=== PATIENT | female | born 1990 | race Caucasian/White ===

== ENCOUNTER 2019-09-06 10:58 | Inpatient (IN) ==
[2019-09-07] MEDS ORDERED: PENICILLIN G POTASSIUM 6 MU in DEXTROSE 5% 250 ML IV STA (08:56)
[2019-09-07] MEDS ORDERED: OXYTOCIN 30 UNITS/500 ML BAG IV PRN (08:56)
--- NOTE | 2019-09-07 09:14 | Obstetrical Progress Note ---
Date of Service September 07, 2019 Subjective Admit Note 29 F P0000 at 40.6 weeks admitted for induction of labor for post-dates. Her course has been uncomplicated. GBS is positive. Cervix is 1/60/- 3/vertex/posterior/intact. EFW is 8 lbs. Will ripen cervix with Cervidil. Discussed with patient and . Results & Data Vital Signs (Past 12 Hours) Vital Signs Temp Pulse Resp BP 09/07/19 07:53 109 H 129/67 09/07/19 07:48 37.1 C 98 H 18 146/63 H
[2019-09-07] MEDS ORDERED: DINOPROSTONE 10 MG INSERT PV ONE (09:19)
[2019-09-07 09:31] LABS: Hematocrit (blood only) 37.2 % (37-47); Hemoglobin 12.7 g/dL (12.0-16.0); Mean Corpuscular Hemoglobin 31.4 pg (25-34); Mean Corpuscular Volume 91.9 fL (80-100); Mean Platelet Volume 10.7 fL (7.4-10.4); Platelet Count 209 K/uL (130-400); RDW Coefficient of Variation 13.7 % (11.5-14.5); RDW Standard Deviation 45.3 fL (36.4-46.3); Red Blood Count 4.05 M/uL (4.2-5.4); White Blood Count 12.42 K/uL (4.8-10.8)
[2019-09-07 09:35] LABS: Mean Corpuscular Hgb Conc 34.1 g/dL (32-36)
--- NOTE | 2019-09-07 09:44 | Obstetrical Progress Note ---
Date of Service September 07, 2019 Subjective Cervidil 10 mg placed vaginally. FHT Cat 1. Results & Data Vital Signs (Past 12 Hours) Vital Signs Temp Pulse Resp BP 09/07/19 07:53 109 H 129/67 09/07/19 07:48 37.1 C 98 H 18 146/63 H
[2019-09-07] MEDS: LACTATED RINGER'S 1,000 ML IV PRN (13:56)
--- NOTE | 2019-09-07 15:10 | Obstetrical Progress Note ---
Date of Service September 07, 2019 Physical Exam Genitourinary: Manual OB Exam: + cervical dilation 2 cm, + cervical effacement 80% and + station high OB Exam Monitor Tracing: + external FHT monitor used, + external uterine monitor used and + category I Results & Data Vital Signs (Past 12 Hours) Vital Signs Temp Pulse Resp BP Pulse Ox 09/07/19 15:06 71 142/79 H 09/07/19 13:16 75 98 09/07/19 13:11 73 98 09/07/19 13:06 84 98 09/07/19 13:01 77 98 09/07/19 12:56 75 98 09/07/19 12:51 83 98 09/07/19 12:47 37.4 C 70 18 135/73 09/07/19 09:43 68 131/61 09/07/19 07:53 109 H 129/67 09/07/19 07:48 37.1 C 98 H 18 146/63 H
[2019-09-07] MEDS: PENICILLIN G POTASSIUM 3 MU in DEXTROSE 5% 100 ML IV PRN ×2 (17:56→22:27)
[2019-09-08] MEDS ORDERED: miSOPROStoL 50 MCG TAB PO SCH
[2019-09-08] MEDS: PENICILLIN G POTASSIUM 3 MU in DEXTROSE 5% 100 ML IV PRN ×6 (03:49→21:56)
--- NOTE | 2019-09-08 06:14 | Obstetrical Progress Note ---
Date of Service September 08, 2019 Physical Exam Genitourinary: OB Exam Abdomen: + estimated weight (8 lbs.) and + irregular contractions Manual OB Exam: + cervical dilation 3 cm and 4 cm, + cervical effacement 90% and + station -2 OB Exam Monitor Tracing: + external FHT monitor used, + external uterine monitor used, + category I and + normal FHT variability Will start Oxytocin to augment contractions Results & Data Vital Signs (Past 12 Hours) Vital Signs Temp Pulse Resp BP 09/08/19 03:45 36.8 C 70 18 121/66 09/07/19 23:32 37.2 C 61 18 132/68 09/07/19 23:29 37.2 C 18 09/07/19 19:21 89 136/65
[2019-09-08] MEDS ORDERED: OXYTOCIN 30 UNITS/500 ML BAG IV PRN (06:32)
[2019-09-08] MEDS: LACTATED RINGER'S 1,000 ML IV PRN ×2 (15:35→23:00)
[2019-09-09] MEDS ORDERED: CITRIC ACID/SODIUM CITRATE 15 ML UDC ONE (02:22)
[2019-09-09] MEDS ORDERED: MoRPHine SULFATE PF 1 MG/ML 10 ML AMP/VIAL ONE (02:37)
[2019-09-09] MEDS ORDERED: fentaNYL citrate 100 MCG/2 ML VIAL ONE (02:37)
[2019-09-09] MEDS ORDERED: LACTATED RINGER'S 1,000 ML IV SCH ×3 (02:45→08:45)
[2019-09-09] MEDS ORDERED: OXYTOCIN 10 UNITS/ML VIAL ONE ×4 (02:56→04:21)
[2019-09-09] MEDS ORDERED: cefOXitin 2,000 MG in DEXTROSE 5% 50 ML IV ONE (03:00)
--- NOTE | 2019-09-09 03:11 | History and Physical Report ---
DATE OF ADMISSION: 09/07/2019 CHIEF COMPLAINT: Arrest of labor. HISTORY OF PRESENT ILLNESS: The patient is a 29-year-old 1, para 0. Her due date was 09/01/2019. She was brought in for induction for being over her due date. Cervidil tape for 12 hours followed by IV Pitocin. She basically got to about 9 cm. The Pitocin had to be turned back and then turned off, then restarted and she was 9 cm for a good 4-5 hours, was unable to move the head. We could not run the Pitocin because the baby got into distress when we did. She was diagnosed with cephalopelvic disproportion and with a nonreassuring heart rate tracing every time she was on the Pitocin. PAST MEDICAL HISTORY: No known drug allergies. PAST SURGICAL HISTORY: [place] teeth removed. MEDICAL HISTORY: No history of rheumatic fever, heart disease, heart murmur, diabetes, tuberculosis. SOCIAL HISTORY: No smoking. No excessive alcohol intake. Works for [employer]. FAMILY HISTORY: Mom is 55. Dad 58, both in good health. One brother in good health. REVIEW OF SYSTEMS: She does have some problems with supraventricular tachycardia. PHYSICAL EXAMINATION: GENERAL: Well-developed, well-nourished 29-year-old female, alert, oriented x3 in intermittent periods of distress due to contractions. HEART: Had regular rhythm. S1, S2 are normal. LUNGS: Clear to auscultation and percussion. ABDOMEN: Term size fetus, estimated weight 7 pounds. PELVIC: Cervix, anterior rim, vertex presentation, -2 station. MUSCULOSKELETAL: Revealed no calf tenderness. IMPRESSIONS OF THIS CASE: Status post wisdom teeth removal. Arrest of labor secondary to cephalopelvic disproportion.
[2019-09-09 03:15] LABS: Basophils # (auto) 0.01 K/uL (0-0.2); Basophils % (auto) 0.1 %; Eosinophils # (auto) 0.01 K/uL (0-0.5); Eosinophils % (auto) 0.1 %; Hematocrit (blood only) 33.9 % (37-47); Hemoglobin 11.5 g/dL (12.0-16.0); Immature Granulocytes # (auto) 0.18 K/uL (0.00-0.02); Immature Granulocytes % (auto) 1.2 %; Lymphocytes # (auto) 0.91 K/uL (1.2-3.4); Lymphocytes % (auto) 5.9 %; Mean Corpuscular Hemoglobin 31.5 pg (25-34); Mean Corpuscular Volume 92.9 fL (80-100); Mean Platelet Volume 10.1 fL (7.4-10.4); Monocytes # (auto) 0.85 K/uL (0.11-0.59); Monocytes % (auto) 5.5 %; Neutrophils # (auto) 13.49 K/uL (1.4-6.5); Neutrophils % (auto) 87.2 %; Platelet Count 193 K/uL (130-400); RDW Coefficient of Variation 13.7 % (11.5-14.5); RDW Standard Deviation 46.8 fL (36.4-46.3); Red Blood Count 3.65 M/uL (4.2-5.4); White Blood Count 15.45 K/uL (4.8-10.8)
--- NOTE | 2019-09-09 03:17 | Anesthesiology Consultation ---
Date of Service September 09, 2019 Assessment & Plan ASA [id number] Proposed Anesthesia Anesthesia Type: Spinal Risk / Benefits Reviewed With: PT / POA / Parent / Guardian, Accepts Plan and Informed Consent Obtained History Surgery Operation Date: 09/09/19 02:50 Proposed Procedures p Section in LD - Serafin Constantino MD Height/Weight Height: 5 ft 1.5 in Weight: 80.9 kg Allergies Allergy/AdvReac Type Severity Reaction Status Date / Time No Known Allergies Allergy Verified 09/17/16 08:56 Medications Home Medications Medication Instructions Recorded Confirmed Last Taken Vitamin with Minerals 1 tab PO DAILY 09/07/19 09/07/19 1 Day Ago ~09/06/19 cranberry 500 mg PO DAILY 09/07/19 09/07/19 09/07/19 folic acid 1 mcg/kg PO DAILY 09/07/19 09/07/19 1 Day Ago ~09/06/19 potassium chloride 1 meq PO DAILY 09/07/19 09/07/19 1 Day Ago ~09/06/19 sertraline 09/07/19 Unknown Active Medications Generic Name Dose Route Start Last Admin Trade Name Freq PRN Reason Stop Dose Admin Lactated Ringer's 1,000 mls @ 125 mls/hr 09/07/19 08:56 09/08/19 23:00 Lr IV 09/09/19 08:55 125 mls/hr .Q8H PRN Administration L&D Protocol Protocol Cefoxitin Sodium 2,000 mg/ 60 mls @ 100 mls/hr 09/09/19 03:00 09/09/19 02:55 Dextrose IV 09/09/19 03:35 100 mls/hr ONE ONE Administration Past Medical History Medical History Group beta Strep positive Heart palpitations Followed by perioperative assistant Exercise / Class Metabolic Activity II 4-5 Yardwork/Stairs/Walk up hill Past Anesthesia History No Hx of Anesthesia Complications and No Family Hx of Anesthesia Complications History of PONV No Hx of PONV and No Hx of Motion Sickness Social History Smoking Status: Never smoker Hx Alcohol Use: No Hx Substance Use: No substance use type: does not use Review of Systems denies fever/cough/ colds/ chest pain/ SOB/ DARIAN Constitutional: no fever and no chills Respiratory: no cough and no dyspnea denies DARIAN Cardiovascular: no chest pain and no dyspnea on exertion Physical Exam Vital Signs Last Vital Signs Temp 37.3 C 09/09/19 00:55 Pulse 103 H 09/09/19 02:53 Resp 18 09/09/19 00:55 BP 139/70 09/09/19 02:37 Pulse Ox 96 09/09/19 02:53 ENMT Mouth: no TMJ abnormality and no dentition abnormality Thyromental Distance: > or= 3.5 Finger Breadths Mallampati Class: II Neck neck extension not limited Respiratory normal respiratory effort; no respiratory distress Auscultation: lungs clear to auscultation bilaterally Cardiovascular Rate/Rhythm: regular rate and regular rhythm Neurologic moves all extremities Psychiatric Orientation: alert and oriented x 3 Testing Laboratory Results 09/09/19 02:57
[2019-09-09] MEDS ORDERED: DiphenhydrAMINE HCL 50 MG/ML VIAL IV PRN ×2 (03:31→21:31)
[2019-09-09] MEDS ORDERED: NALBUPHINE HCL INJ 10 MG/ML AMP IV PRN (03:31)
[2019-09-09] MEDS ORDERED: ePHEDrine sulfate 50 MG/ML AMP IV PRN (03:31)
[2019-09-09] MEDS ORDERED: NALOXONE HCL 1 MG in SODIUM CHLORIDE 0.9% 1000ML 1,000 ML IV PRN (03:31)
[2019-09-09] MEDS ORDERED: NALOXONE HCL 0.4 MG/1 ML VIAL/CARP IV PRN (03:31)
[2019-09-09] MEDS ORDERED: LACTATED RINGER'S 500 ML IV PRN (03:31)
[2019-09-09] MEDS ORDERED: ONDANSETRON INJ 2 MG/ML 2 ML VIAL IV PRN ×2 (03:31→21:31)
[2019-09-09] MEDS ORDERED: NALOXONE HCL 0.08 MG in SYRINGE 1.8 ML IV PRN (03:31)
[2019-09-09] MEDS ORDERED: HYDROmorphone INJ 0.5 MG/0.5 ML SYR IV PRN (03:31)
[2019-09-09] MEDS ORDERED: MoRPHine SULFATE PF 1 MG/ML 10 ML AMP/VIAL INT SPINAL ONE (03:31)
[2019-09-09 03:39] LABS: Mean Corpuscular Hgb Conc 33.9 g/dL (32-36)
[2019-09-09] MEDS ORDERED: KETOROLAC 30 MG/ML VIAL ONE (03:44)
[2019-09-09] MEDS ORDERED: DC INTRASPINAL MORPHINE SCH (03:45)
[2019-09-09] MEDS ORDERED: SODIUM CHLORIDE 0.9% 1000ML 1,000 ML IV SCH (03:45)
[2019-09-09] MEDS ORDERED: NO NARCOTICS OR SEDATIVES SCH (03:45)
[2019-09-09] MEDS ORDERED: OXYTOCIN 10 UNITS/ML VIAL IM ONE (03:57)
--- NOTE | 2019-09-09 04:33 | Post Operative Brief Note ---
Immediate Post Op Note v1 Date of Surgery September 09, 2019 Pre & Post Diagnosis Operation Date: 09/09/19 02:50 Pre-Op Diagnosis: 1.Cephalopelvic Disproportion Post-Op Diagnosis: Same as preop I identified the patient and participated in the time-out.: Yes Procedure Operation Date: 09/09/19 02:50 Actual Procedures p Section in LD(Not Applicable) - Serafin Constantino MD Surgeon Serafin Constantino MD Photogravure Press Operator none Estimated Blood Loss 500 Findings Consistent with Post-Op Diagnosis Specimens 2000 ml Drains Nicole Catheter (Nicole inserted in OR, clear yellow urine, to be monitored by anesthesia during proceedure) Anesthesia Type Spinal Disposition Accompanied Patient To Recovery: No Disposition: Recovery Room
--- NOTE | 2019-09-09 05:33 | Operative Report ---
DATE OF OPERATION: 09/09/2019 PROCEDURE: Primary low segment section. INDICATIONS FOR SURGERY: Arrest of labor secondary to cephalopelvic disproportion. PREOPERATIVE DIAGNOSIS: Cephalopelvic disproportion post-term. POSTOPERATIVE DIAGNOSIS: Delivered a live male infant. SURGEON: Salbador Constantino MD BELLMAN DRIVER: equal opportunity assistant. ESTIMATED BLOOD LOSS: 500 mL. ANESTHESIA: Spinal. OPERATIVE FINDINGS AND PROCEDURE: The patient was brought to the OR table, correctly identified by armband and conversation. Spinal anesthesia was administered. Nicole catheter was inserted aseptically in the bladder, connected to gravity drainage. Compression stockings were applied. Lower abdomen was painted with an alcohol based sterilizing solution, draped in the usual sterile fashion. Pfannenstiel incision was made, carried down to the anterior fascia by sharp dissection. Hemostasis was secured by electrocauterization. Fascia was incised transversely, from underlying muscle by blunt and sharp dissection. Recti muscles were in the midline exposing the peritoneum which was carefully raised and entered. Incision was made above the vesicouterine fold. Bladder was undermined bluntly and pushed out of the operative field. Lower uterine segment was scored with a knife and then entered with scissors. This incision was extended laterally. Vectis retractor was applied to the head, and with fundal pressure, live was delivered. was suctioned through the mouth and nose. It was attended to by the stacker driver who was scrubbed and present at the time of delivery. Cord was clamped and cut. Cord blood was taken. Placenta was removed manually. Uterus, tubes, and ovaries were brought out through the incision. Myometrial defect was grasped with ring forceps on the edges and then the middle. Then, a continuous interlocking suture of heavy chromic was used to approximate the myometrium. On the left side, the tear had gone through the vessels and several horizontal sutures were placed above and below the myometrial defect to control the bleeding. Following this, a second layer was approximated with a heavy duty Vicryl. This was continuous and interlocking layer. Then, 3 [id number] sutures of heavy duty Vicryl was used to finish the approximation. Inspection of the approximation revealed it to be hemostatic. Peritoneal edges were identified and the bladder flap was sewn together with a running 3-0 chromic. Following this, pelvis was cleansed of all blood clots and debris. The lower uterine segment was inspected and found to be hemostatic. Then, uterus, tubes, and ovaries were reinserted into the pelvic cavity. Careful anatomical approximation of anterior abdominal wall was performed. Peritoneum was closed with a mattress suture of chromic catgut. Recti muscles approximated with interrupted [id number] suture of chromic catgut. The fascia was closed with continuous interlocking suture of Vicryl on each side, tied in the midline. SubQ was approximated with a running plain and skin edge approximated with staple clips. I attest to the content of the Intraoperative Record and any orders documented therein. Any exception s are noted below.
[2019-09-09] MEDS ORDERED: CITRIC ACID/SODIUM CITRATE 15 ML UDC PO SCH (06:00)
[2019-09-09] MEDS: OXYTOCIN 20 UNITS in LACTATED RINGER'S 1,000 ML IV SCH ×2 (06:19→14:40)
--- NOTE | 2019-09-09 08:27 | Anesthesiology Progress Note ---
Date of Service September 09, 2019 Anesthesia Post Procedure Vital Signs Vital Signs: Temp Pulse Resp BP Pulse Ox 09/09/19 08:21 78 120/63 99 09/09/19 08:16 79 99 09/09/19 08:11 76 117/67 100 09/09/19 08:10 20 09/09/19 08:06 81 100 09/09/19 08:01 86 116/68 100 09/09/19 07:56 83 98 09/09/19 07:51 86 116/55 L 98 09/09/19 07:46 82 98 09/09/19 07:41 82 117/65 99 09/09/19 07:40 20 09/09/19 07:36 94 H 98 09/09/19 07:31 76 118/64 98 09/09/19 07:26 82 98 09/09/19 07:21 80 121/64 99 09/09/19 07:16 82 98 09/09/19 07:11 79 123/67 98 09/09/19 07:10 37.0 C 20 09/09/19 07:06 87 98 09/09/19 07:01 96 H 119/77 97 09/09/19 06:56 86 98 09/09/19 06:52 93 H 127/61 09/09/19 06:51 91 H 98 09/09/19 06:46 92 H 98 09/09/19 06:43 36.6 C 18 09/09/19 06:42 94 H 155/60 H 09/09/19 06:41 99 H 98 09/09/19 06:36 86 98 09/09/19 06:35 36.7 C 18 09/09/19 06:32 104 H 112/56 L 09/09/19 06:31 98 H 98 09/09/19 06:26 122 H 99 09/09/19 06:25 18 09/09/19 06:21 75 119/64 98 09/09/19 06:16 84 98 09/09/19 06:15 18 09/09/19 06:11 85 116/58 L 98 09/09/19 06:06 79 98 09/09/19 06:05 18 09/09/19 06:01 75 120/61 99 09/09/19 05:56 70 99 09/09/19 05:55 36.7 C 18 09/09/19 05:51 71 117/59 L 98 09/09/19 05:46 81 98 09/09/19 05:45 18 09/09/19 05:41 75 119/56 L 100 09/09/19 05:36 89 99 09/09/19 05:35 18 09/09/19 05:31 76 129/60 99 09/09/19 05:26 74 127/63 99 09/09/19 05:25 18 09/09/19 05:21 84 100 09/09/19 05:16 75 100 09/09/19 05:13 84 134/54 L 09/09/19 05:11 73 99 09/09/19 05:06 70 100 09/09/19 05:05 18 09/09/19 05:03 70 102/52 L 09/09/19 05:01 81 100 09/09/19 04:56 75 100 09/09/19 04:55 36.7 C 18 09/09/19 04:51 76 119/55 L 09/09/19 04:42 71 127/68 09/09/19 02:53 103 H 96 09/09/19 02:48 113 H 96 09/09/19 02:43 105 H 99 09/09/19 02:38 85 98 09/09/19 02:37 86 139/70 09/09/19 02:33 100 H 99 09/09/19 02:28 88 99 09/09/19 02:23 92 H 98 09/09/19 02:18 96 H 98 09/09/19 02:13 97 H 98 09/09/19 02:08 109 H 96 09/09/19 01:48 96 H 135/66 09/09/19 01:30 86 119/58 L 09/09/19 00:55 37.3 C 18 09/09/19 00:53 80 136/73 09/09/19 00:10 18 09/08/19 23:36 74 136/69 09/08/19 23:30 18 09/08/19 23:00 36.6 C 18 09/08/19 21:59 71 159/74 H 09/08/19 21:30 18 09/08/19 21:06 77 146/68 H 09/08/19 21:00 37.3 C 18 09/08/19 20:00 18 09/08/19 19:15 36.9 C 18 09/08/19 19:11 86 135/65 09/08/19 18:07 63 134/66 09/08/19 16:59 36.9 C 61 20 131/64 09/08/19 16:10 83 18 146/79 H 09/08/19 16:09 78 154/79 H 09/08/19 16:07 69 168/92 H 09/08/19 16:06 87 168/86 H 09/08/19 15:10 37.2 C 20 09/08/19 15:07 87 144/68 H 09/08/19 14:53 75 132/63 09/08/19 14:13 76 132/65 09/08/19 13:44 72 98 09/08/19 13:39 84 97 09/08/19 13:34 73 98 09/08/19 13:29 69 98 09/08/19 13:24 77 98 09/08/19 13:20 37.1 C 18 09/08/19 13:19 81 137/68 98 09/08/19 13:14 75 98 09/08/19 13:09 72 98 09/08/19 13:04 78 98 09/08/19 12:23 86 133/70 09/08/19 11:21 37.1 C 20 09/08/19 11:19 71 134/65 09/08/19 09:57 72 138/64 09/08/19 09:01 76 18 137/65 Pain Intensity Bilateral Back: Pain Intensity: 10 Bilateral Lower Abdomen: Pain Intensity: 0 Transfer of Care Handoff Completed per policy Notes Mental Status: alert / awake / arousable and participated in evaluation Patient Amnestic to Procedure: Yes Nausea / Vomiting: adequately controlled Pain: adequately controlled Airway Patency, RR, SpO2: stable & adequate BP & HR: stable & adequate Hydration State: stable & adequate Neuraxial Anesthesia: was administered and sensory block is resolving Anesthetic Complications: no major complications apparent and Pt Satisfied with anesthetic care
[2019-09-09] MEDS ORDERED: MAGNESIUM HYDROXIDE SUSP 30 ML UDC PO PRN (08:32)
[2019-09-09] MEDS ORDERED: SUPERCREAM 0.870% 15 GM JAR EXT PRN (08:32)
[2019-09-09] MEDS ORDERED: SENNA 8.6 MG TAB PO PRN (08:32)
[2019-09-09] MEDS ORDERED: DIPHTHERIA/TETANUS/PERTUSSIS 0.5 ML SYR/VIAL IM ONE (08:32)
[2019-09-09] MEDS ORDERED: BENZOCAINE 20% AER SPR 82.5 GM CAN EXT PRN (08:32)
[2019-09-09] MEDS ORDERED: HYDROCORTISONE ACETATE 25 MG SUPP PR PRN (08:32)
--- NOTE | 2019-09-09 08:39 | Obstetrical Progress Note ---
Date of Service September 09, 2019 Subjective Postop check Patient is seen and examined Feels well, no complaints other than being tired, has not slept for 2 days Pain is under control with meds No CP/ SOB/ Dizziness/ N&V/ VB/ Leg pain Not OOB yet Tolerating clears Breast feeding her baby boy Vital Signs Temp Pulse Resp BP Pulse Ox 09/09/19 08:36 82 99 09/09/19 08:31 90 120/69 99 09/09/19 08:26 90 100 09/09/19 08:21 78 120/63 99 09/09/19 08:16 79 99 09/09/19 08:11 76 117/67 100 09/09/19 08:10 20 09/09/19 08:06 81 100 09/09/19 08:01 86 116/68 100 09/09/19 07:56 83 98 09/09/19 07:51 86 116/55 L 98 09/09/19 07:46 82 98 09/09/19 07:41 82 117/65 99 09/09/19 07:40 20 09/09/19 07:36 94 H 98 09/09/19 07:31 76 118/64 98 09/09/19 07:26 82 98 09/09/19 07:21 80 121/64 99 09/09/19 07:16 82 98 09/09/19 07:11 79 123/67 98 09/09/19 07:10 37.0 C 20 09/09/19 07:06 87 98 09/09/19 07:01 96 H 119/77 97 09/09/19 06:56 86 98 09/09/19 06:52 93 H 127/61 09/09/19 06:51 91 H 98 09/09/19 06:46 92 H 98 09/09/19 06:43 36.6 C 18 09/09/19 06:42 94 H 155/60 H 09/09/19 06:41 99 H 98 09/09/19 06:36 86 98 09/09/19 06:35 36.7 C 18 09/09/19 06:32 104 H 112/56 L 09/09/19 06:31 98 H 98 09/09/19 06:26 122 H 99 09/09/19 06:25 18 09/09/19 06:21 75 119/64 98 09/09/19 06:16 84 98 09/09/19 06:15 18 09/09/19 06:11 85 116/58 L 98 09/09/19 06:06 79 98 09/09/19 06:05 18 09/09/19 06:01 75 120/61 99 09/09/19 05:56 70 99 09/09/19 05:55 36.7 C 18 09/09/19 05:51 71 117/59 L 98 09/09/19 05:46 81 98 09/09/19 05:45 18 09/09/19 05:41 75 119/56 L 100 09/09/19 05:36 89 99 09/09/19 05:35 18 09/09/19 05:31 76 129/60 99 09/09/19 05:26 74 127/63 99 09/09/19 05:25 18 09/09/19 05:21 84 100 09/09/19 05:16 75 100 09/09/19 05:13 84 134/54 L 09/09/19 05:11 73 99 09/09/19 05:06 70 100 09/09/19 05:05 18 09/09/19 05:03 70 102/52 L 09/09/19 05:01 81 100 09/09/19 04:56 75 100 09/09/19 04:55 36.7 C 18 09/09/19 04:51 76 119/55 L 09/09/19 04:42 71 127/68 09/09/19 02:53 103 H 96 09/09/19 02:48 113 H 96 09/09/19 02:43 105 H 99 09/09/19 02:38 85 98 09/09/19 02:37 86 139/70 09/09/19 02:33 100 H 99 09/09/19 02:28 88 99 09/09/19 02:23 92 H 98 09/09/19 02:18 96 H 98 09/09/19 02:13 97 H 98 09/09/19 02:08 109 H 96 09/09/19 01:48 96 H 135/66 09/09/19 01:30 86 119/58 L 09/09/19 00:55 37.3 C 18 09/09/19 00:53 80 136/73 09/09/19 00:10 18 11/27/19 23:36 74 136/69 09/08/19 23:30 18 09/08/19 23:00 36.6 C 18 09/08/19 21:59 71 159/74 H 09/08/19 21:30 18 09/08/19 21:06 77 146/68 H 09/08/19 21:00 37.3 C 18 UOP 50 in 2 hours PE: General: Alert, orientedx3, NAD CVS: S1S2 RRR Lungs: CTAB Abd: soft, NT, ND, BS+, dresssing C/D/I, fundus firm below U No VB Ext: NT, no edema, SCD's on AP: 29 yo female s/p Primary Csection , pod#0 VSS Afebrile doing well Low UOP, dehydration, s/p labor since 09/07 Plan to give IVF bolus Continue to routine postop care Encourage PO intake, ambulate in pm Results & Data Vital Signs (Past 12 Hours) Vital Signs Temp Pulse Resp BP Pulse Ox 09/09/19 08:31 90 120/69 99 09/09/19 08:26 90 100 09/09/19 08:21 78 120/63 99 09/09/19 08:16 79 99 09/09/19 08:11 76 117/67 100 09/09/19 08:10 20 09/09/19 08:06 81 100 09/09/19 08:01 86 116/68 100 09/09/19 07:56 83 98 09/09/19 07:51 86 116/55 L 98 09/09/19 07:46 82 98 09/09/19 07:41 82 117/65 99 09/09/19 07:40 20 09/09/19 07:36 94 H 98 09/09/19 07:31 76 118/64 98 09/09/19 07:26 82 98 09/09/19 07:21 80 121/64 99 09/09/19 07:16 82 98 09/09/19 07:11 79 123/67 98 09/09/19 07:10 37.0 C 20 09/09/19 07:06 87 98 09/09/19 07:01 96 H 119/77 97 09/09/19 06:56 86 98 09/09/19 06:52 93 H 127/61 09/09/19 06:51 91 H 98 09/09/19 06:46 92 H 98 09/09/19 06:43 36.6 C 18 09/09/19 06:42 94 H 155/60 H 09/09/19 06:41 99 H 98 09/09/19 06:36 86 98 09/09/19 06:35 36.7 C 18 09/09/19 06:32 104 H 112/56 L 09/09/19 06:31 98 H 98 09/09/19 06:26 122 H 99 09/09/19 06:25 18 09/09/19 06:21 75 119/64 98 09/09/19 06:16 84 98 09/09/19 06:15 18 09/09/19 06:11 85 116/58 L 98 09/09/19 06:06 79 98 09/09/19 06:05 18 09/09/19 06:01 75 120/61 99 09/09/19 05:56 70 99 09/09/19 05:55 36.7 C 18 09/09/19 05:51 71 117/59 L 98 09/09/19 05:46 81 98 09/09/19 05:45 18 09/09/19 05:41 75 119/56 L 100 09/09/19 05:36 89 99 09/09/19 05:35 18 09/09/19 05:31 76 129/60 99 09/09/19 05:26 74 127/63 99 09/09/19 05:25 18 09/09/19 05:21 84 100 09/09/19 05:16 75 100 09/09/19 05:13 84 134/54 L 09/09/19 05:11 73 99 09/09/19 05:06 70 100 09/09/19 05:05 18 09/09/19 05:03 70 102/52 L 09/09/19 05:01 81 100 09/09/19 04:56 75 100 09/09/19 04:55 36.7 C 18 09/09/19 04:51 76 119/55 L 09/09/19 04:42 71 127/68 09/09/19 02:53 103 H 96 09/09/19 02:48 113 H 96 09/09/19 02:43 105 H 99 09/09/19 02:38 85 98 09/09/19 02:37 86 139/70 09/09/19 02:33 100 H 99 09/09/19 02:28 88 99 09/09/19 02:23 92 H 98 09/09/19 02:18 96 H 98 09/09/19 02:13 97 H 98 09/09/19 02:08 109 H 96 09/09/19 01:48 96 H 135/66 09/09/19 01:30 86 119/58 L 09/09/19 00:55 37.3 C 18 09/09/19 00:53 80 136/73 09/09/19 00:10 18 09/08/19 23:36 74 136/69 09/08/19 23:30 18 09/08/19 23:00 36.6 C 18 09/08/19 21:59 71 159/74 H 09/08/19 21:30 18 09/08/19 21:06 77 146/68 H 09/08/19 21:00 37.3 C 18
[2019-09-09] MEDS ORDERED: Nursing to Pharmacy Communication ONE (09:55)
[2019-09-09] MEDS: KETOROLAC 30 MG/ML VIAL IV PRN ×2 (10:36→16:42)
[2019-09-09] MEDS ORDERED: LACTATED RINGER'S 500 ML IV ONE (12:43)
[2019-09-09] MEDS: SIMETHICONE 80 MG CHEW PO SCH ×3 (14:40→20:04)
[2019-09-09] MEDS: DOCUSATE SODIUM 100 MG CAP PO SCH (20:04)
[2019-09-09] MEDS ORDERED: PROMETHAZINE HCL 25 MG in SODIUM CHLORIDE 0.9% 50 ML IV PRN (21:31)
[2019-09-09] MEDS ORDERED: MEPERIDINE HCL 50 MG/ML CARP IV PRN (21:31)
[2019-09-09] MEDS ORDERED: OXYCODONE/ACETAMINOPHEN 5mg/325mg TAB PO PRN (21:31)
[2019-09-09] MEDS ORDERED: KETOROLAC 30 MG/ML VIAL IV PRN (21:31)
[2019-09-09 22:20] LABS: Hematocrit (blood only) 27.3 % (37-47); Hemoglobin 9.4 g/dL (12.0-16.0); Mean Corpuscular Hemoglobin 31.8 pg (25-34); Mean Corpuscular Hgb Conc 34.4 g/dL (32-36); Mean Corpuscular Volume 92.2 fL (80-100); Mean Platelet Volume 9.9 fL (7.4-10.4); Platelet Count 180 K/uL (130-400); RDW Standard Deviation 46.9 fL (36.4-46.3); Red Blood Count 2.96 M/uL (4.2-5.4); White Blood Count 13.56 K/uL (4.8-10.8)
[2019-09-09 22:37] LABS: Albumin Level 2.1 gm/dl (3.4-5.0); BUN Creatinine Ratio 8.1 (10-20); Calcium 8.3 mg/dl (8.5-10.1); Creatinine Clr Calc Pharmacy 100.5 ml/min; Est GFR (African American) 115.6; Est GFR (Non-African American) 99.8; Potassium 3.6 mmol/L (3.5-5.1)
[2019-09-09 22:40] LABS: Albumin Globulin Ratio 0.6 (0.9-2); Bilirubin,Total 0.7 mg/dl (0.2-1); Globulin 3.2 gm/dl (2.5-4.0); Total Protein 5.3 gm/dl (6.4-8.2)
[2019-09-09 22:46] LABS: Basophils # (auto) 0.01 K/uL (0-0.2); Basophils % (auto) 0.1 %; Immature Granulocytes # (auto) 0.14 K/uL (0.00-0.02); Lymphocytes # (auto) 1.18 K/uL (1.2-3.4); Lymphocytes % (auto) 8.7 %; Monocytes # (auto) 0.94 K/uL (0.11-0.59); Monocytes % (auto) 6.9 %; Neutrophils # (auto) 11.29 K/uL (1.4-6.5); Neutrophils % (auto) 83.3 %; Toxic Granulation 1+
[2019-09-10 01:13] LABS: Appearance Urine Clear (Clear); Bacteria Urine Automated Negative (Negative); Blood Urine 3+ (Negative); Color Urine Dark Yellow; Epithelial Cell Urine Auto >30 /lpf (0-5); Glucose Urine UA Negative (Negative); Ketones Urine Trace (Negative); Leukocyte Esterase Urine 1+ (Negative); Nitrite Urine Negative (Negative); Protein Urine Trace (Negative); Specific Gravity Urine 1.016 (1.000-1.030); Urobilinogen Urine Negative (Negative); pH Urine 6.5 (4.5-7.5)
[2019-09-10 01:17] LABS: Bilirubin Urine Negative (Negative); Ictotest Urine Negative (Negative)
[2019-09-10 01:18] LABS: Cast Urine Automated 0 /lpf (0-5); Mucus Urine Present (None Prsent); RBC Urine Automated >30 /hpf (0-4)
[2019-09-10 06:51] LABS: Basophils # (auto) 0.01 K/uL (0-0.2); Basophils % (auto) 0.1 %; Eosinophils # (auto) 0.01 K/uL (0-0.5); Eosinophils % (auto) 0.1 %; Hematocrit (blood only) 23.9 % (37-47); Hemoglobin 8.2 g/dL (12.0-16.0); Immature Granulocytes # (auto) 0.14 K/uL (0.00-0.02); Immature Granulocytes % (auto) 1.2 %; Lymphocytes % (auto) 9.5 %; Mean Corpuscular Hemoglobin 32.2 pg (25-34); Mean Corpuscular Hgb Conc 34.3 g/dL (32-36); Mean Corpuscular Volume 93.7 fL (80-100); Monocytes % (auto) 6.1 %; Neutrophils # (auto) 9.58 K/uL (1.4-6.5); Platelet Count 158 K/uL (130-400); RDW Standard Deviation 47.8 fL (36.4-46.3); Red Blood Count 2.55 M/uL (4.2-5.4); White Blood Count 11.54 K/uL (4.8-10.8)
[2019-09-10] MEDS: IBUPROFEN 600 MG TAB PO PRN ×3 (08:17→19:29)
[2019-09-10] MEDS: PRENATAL VITAMIN 1 TAB PO SCH (08:17)
[2019-09-10] MEDS: DOCUSATE SODIUM 100 MG CAP PO SCH ×2 (08:17→20:30)
[2019-09-10] MEDS: SIMETHICONE 80 MG CHEW PO SCH ×4 (08:18→20:30)
[2019-09-10] MEDS: FERROUS SULFATE 325 MG TAB PO SCH (08:18)
--- NOTE | 2019-09-10 09:24 | Obstetrical Progress Note ---
Date of Service September 10, 2019 Assessment & Plan (1) delivery delivered: c/sec day #1 pt doing well continue day #1 care Subjective Ambulation: ambulating normally Voiding: no voiding problems Passing Gas:: Yes Diet Tolerance:: clear liquids Lochia:: Small Feeding Type:: breast feeding Review of Systems All systems reviewed & are unremarkable except as noted in HPI & below Physical Exam Constitutional WD/WN, vitals as above well developed and well nourished Eyes PERRL, conjunctivae normal, anicteric sclerae ENMT external ear and nose normal, oropharynx normal Neck trachea midline, no thyromegaly Respiratory normal respiratory effort, lungs clear to auscultation Cardiovascular RRR, no murmur, no edema Chest (Breasts) normal inspection/palpation of breasts Gastrointestinal (Abdomen) normal bowel sounds, soft, nontender, no hepatosplenomegaly Musculoskeletal no cyanosis or clubbing, extremities motor strength 5/5 Skin no rashes, warm and dry + incision (Clean,dry and intact) Neurologic patellar DTR's 2+ bilat, sensation intact Psychiatric A+Ox3, euthymic affect Genitourinary normal external appearance Lymphatic no cervical or axillary lymphadenopathy Results & Data Vital Signs (Past 12 Hours) Vital Signs Temp Pulse Resp BP Pulse Ox 09/10/19 07:45 37.1 C 81 18 130/77 97 09/10/19 07:27 37.4 C 77 20 127/80 98 09/09/19 23:30 37.0 C 83 20 123/78 99
[2019-09-10] MEDS ORDERED: BISACODYL 5 MG TABEC PO SCH (20:00)
[2019-09-11] MEDS: IBUPROFEN 600 MG TAB PO PRN ×4 (01:20→17:14)
[2019-09-11 06:38] LABS: Hematocrit (blood only) 22.2 % (37-47); Hemoglobin 7.4 g/dL (12.0-16.0)
[2019-09-11] MEDS ORDERED: BISACODYL 10 MG SUPP PR PRN (08:32)
[2019-09-11] MEDS: FERROUS SULFATE 325 MG TAB PO SCH ×2 (10:16→21:34)
[2019-09-11] MEDS: SIMETHICONE 80 MG CHEW PO SCH ×4 (10:16→21:34)
[2019-09-11] MEDS: PRENATAL VITAMIN 1 TAB PO SCH (10:16)
[2019-09-11] MEDS: DOCUSATE SODIUM 100 MG CAP PO SCH ×2 (10:16→21:35)
[2019-09-11 11:05] LABS: Basophils # (auto) 0.01 K/uL (0-0.2); Basophils % (auto) 0.1 %; Eosinophils # (auto) 0.03 K/uL (0-0.5); Eosinophils % (auto) 0.4 %; Hematocrit (blood only) 23.2 % (37-47); Hemoglobin 7.9 g/dL (12.0-16.0); Immature Granulocytes # (auto) 0.13 K/uL (0.00-0.02); Immature Granulocytes % (auto) 1.8 %; Lymphocytes # (auto) 0.94 K/uL (1.2-3.4); Lymphocytes % (auto) 12.7 %; Mean Corpuscular Hemoglobin 31.7 pg (25-34); Mean Corpuscular Hgb Conc 34.1 g/dL (32-36); Mean Corpuscular Volume 93.2 fL (80-100); Mean Platelet Volume 9.9 fL (7.4-10.4); Monocytes # (auto) 0.47 K/uL (0.11-0.59); Monocytes % (auto) 6.4 %; Neutrophils % (auto) 78.6 %; Platelet Count 152 K/uL (130-400); RDW Coefficient of Variation 13.9 % (11.5-14.5); RDW Standard Deviation 47.5 fL (36.4-46.3); Red Blood Count 2.49 M/uL (4.2-5.4); White Blood Count 7.38 K/uL (4.8-10.8)
--- NOTE | 2019-09-11 11:07 | Obstetrical Progress Note ---
Date of Service September 11, 2019 Subjective Patient is seen and examined. She feels well, no complaints other than swelling in legs Pain is under control with oral meds. Ambulating without dizziness Voiding without difficulty Tolerating regular diet with out N&V Flatus + BM + Bleeding is minimal No fever/ chills/ CP/ SOB/ N&V/ Leg pain Breast feeding without problems Vital Signs Temp Pulse Pulse Resp BP Pulse Ox 09/10/19 23:35 37.0 C 76 20 135/77 97 09/10/19 16:51 37.0 C 102 H 16 143/76 H The most recent vitals: T 36.9, P 64, R 18, Pulse Ox: 98%, BP 123/73 09/11/19 09/11/19 Range/Units 10:54 06:21 WBC 7.38 (4.8-10.8) K/uL RBC 2.49 L (4.2-5.4) M/uL Hgb 7.9 L 7.4 L (12.0-16.0) g/dL Hct 23.2 L 22.2 L (37-47) % MCV 93.2 (80-100) fL MCH 31.7 (25-34) pg MCHC 34.1 (32-36) g/dL RDW Std Deviation 47.5 H (36.4-46.3) fL RDW Coeff of Rodrigue 13.9 (11.5-14.5) % Plt Count 152 (130-400) K/uL MPV 9.9 (7.4-10.4) fL Immature Gran % (Auto) 1.8 % Neut % (Auto) 78.6 % Lymph % (Auto) 12.7 % [place] % (Auto) 6.4 % Eos % (Auto) 0.4 % Baso % (Auto) 0.1 % Immature Gran # (Auto) 0.13 H (0.00-0.02) K/uL Neut # (Auto) 5.80 (1.4-6.5) K/uL Lymph # (Auto) 0.94 L (1.2-3.4) K/uL [place] # (Auto) 0.47 (0.11-0.59) K/uL Eos # (Auto) 0.03 (0-0.5) K/uL Baso # (Auto) 0.01 (0-0.2) K/uL PE: General: Alert, orientedx3, NAD CVS: S1S2 RRR Lungs; CTAB Abd: soft, NT, ND, BS+, fundus firm, at the Umbilicus, there is firm area on the uterus, about 5x6 cm, fibroid? Incision: Clean, dry, intact Perineum intact, Lochia rubra minimal Ext; NT, 1+/1+ edema, no erythema, Homans signs neg/ neg AP: 29 yo s/p C Section, pod# 2 VSS Afebrile doing well H&H: 7.4/ 22.2 asymptomatic, pulse normal, will start iron 2x a day and discussed iron rich diet Will get US Continue routine postop care Encourage ambulation, PO intake All questions were answered D/C home tomorrow Results & Data Vital Signs (Past 12 Hours) Vital Signs Temp Pulse Resp BP Pulse Ox 09/10/19 23:35 37.0 C 76 20 135/77 97
[2019-09-11 11:31] LABS: RBC Morphology Unremarkable
--- NOTE | 2019-09-11 13:19 | Obstetrical Progress Note ---
Date of Service September 11, 2019 Subjective Patient is reevaluated Sh is walking in hallway with baby No dizziness/ palpitation Pain is minimal 09/11/19 09/11/19 Range/Units 10:54 06:21 WBC 7.38 (4.8-10.8) K/uL RBC 2.49 L (4.2-5.4) M/uL Hgb 7.9 L 7.4 L (12.0-16.0) g/dL Hct 23.2 L 22.2 L (37-47) % MCV 93.2 (80-100) fL MCH 31.7 (25-34) pg MCHC 34.1 (32-36) g/dL RDW Std Deviation 47.5 H (36.4-46.3) fL RDW Coeff of Rodrigue 13.9 (11.5-14.5) % Plt Count 152 (130-400) K/uL MPV 9.9 (7.4-10.4) fL Immature Gran % (Auto) 1.8 % Neut % (Auto) 78.6 % Lymph % (Auto) 12.7 % Greer % (Auto) 6.4 % Eos % (Auto) 0.4 % Baso % (Auto) 0.1 % Immature Gran # (Auto) 0.13 H (0.00-0.02) K/uL Neut # (Auto) 5.80 (1.4-6.5) K/uL Lymph # (Auto) 0.94 L (1.2-3.4) K/uL Greer # (Auto) 0.47 (0.11-0.59) K/uL Eos # (Auto) 0.03 (0-0.5) K/uL Baso # (Auto) 0.01 (0-0.2) K/uL RBC Morphology Unremarkable Abd: soft, NT, ND, BS+, Fundus +3 above U Bed side US: No fibroid seen on fundus, large globular normal pospartum uterus Normal incision/ endometrium and bladder No fluid collection in pelvis Continue to monitor closely Results & Data Vital Signs (Past 12 Hours) Vital Signs Temp Pulse Resp BP Pulse Ox 09/11/19 10:00 36.9 C 64 18 123/72 98
[2019-09-11] MEDS: cephALEXin 250 MG CAP PO SCH (21:35)
[2019-09-12] MEDS: IBUPROFEN 600 MG TAB PO PRN ×3 (00:09→09:55)
[2019-09-12 06:10] LABS: Basophils # (auto) 0.01 K/uL (0-0.2); Basophils % (auto) 0.2 %; Eosinophils # (auto) 0.05 K/uL (0-0.5); Eosinophils % (auto) 0.8 %; Hematocrit (blood only) 24.3 % (37-47); Hemoglobin 8.2 g/dL (12.0-16.0); Immature Granulocytes # (auto) 0.13 K/uL (0.00-0.02); Immature Granulocytes % (auto) 2.2 %; Lymphocytes # (auto) 1.15 K/uL (1.2-3.4); Lymphocytes % (auto) 19.5 %; Mean Corpuscular Hemoglobin 31.5 pg (25-34); Mean Corpuscular Hgb Conc 33.7 g/dL (32-36); Mean Corpuscular Volume 93.5 fL (80-100); Mean Platelet Volume 9.7 fL (7.4-10.4); Monocytes # (auto) 0.44 K/uL (0.11-0.59); Monocytes % (auto) 7.5 %; Neutrophils # (auto) 4.11 K/uL (1.4-6.5); Neutrophils % (auto) 69.8 %; Platelet Count 176 K/uL (130-400); RDW Coefficient of Variation 13.6 % (11.5-14.5); RDW Standard Deviation 46.5 fL (36.4-46.3); White Blood Count 5.89 K/uL (4.8-10.8)
[2019-09-12] MEDS ORDERED: POTASSIUM CHLORIDE 10 MEQ TABCR PO SCH (09:00)
[2019-09-12] MEDS: PRENATAL VITAMIN 1 TAB PO SCH (09:24)
[2019-09-12] MEDS: DOCUSATE SODIUM 100 MG CAP PO SCH (09:24)
[2019-09-12] MEDS: SIMETHICONE 80 MG CHEW PO SCH (09:25)
[2019-09-12] MEDS: FERROUS SULFATE 325 MG TAB PO SCH (09:25)
[2019-09-12] MEDS: cephALEXin 250 MG CAP PO SCH (09:26)
--- NOTE | 2019-09-12 09:59 | Obstetrical Progress Note ---
Date of Service September 12, 2019 Subjective Patient is seen and examined. She feels well, no complaints. Likes to be discharged. Pain is under control with oral meds. Ambulating without dizziness Voiding without difficulty Tolerating regular diet with out N&V Flatus + BM + Bleeding is minimal No fever/ chills/ CP/ SOB/ N&V/ Leg pain Breast feeding without problems Vital Signs Temp Pulse Pulse Resp BP Pulse Ox 09/12/19 08:15 36.8 C 85 16 137/80 09/12/19 00:00 36.8 C 67 16 129/79 100 09/11/19 16:20 37.3 C 77 18 144/78 H 98 09/11/19 10:00 36.9 C 64 18 123/72 98 09/12/19 09/11/19 Range/Units 05:58 10:54 WBC 5.89 7.38 (4.8-10.8) K/uL RBC 2.60 L 2.49 L (4.2-5.4) M/uL Hgb 8.2 L 7.9 L (12.0-16.0) g/dL Hct 24.3 L 23.2 L (37-47) % MCV 93.5 93.2 (80-100) fL MCH 31.5 31.7 (25-34) pg MCHC 33.7 34.1 (32-36) g/dL RDW Std Deviation 46.5 H 47.5 H (36.4-46.3) fL RDW Coeff of Rodrigue 13.6 13.9 (11.5-14.5) % Plt Count 176 152 (130-400) K/uL MPV 9.7 9.9 (7.4-10.4) fL Immature Gran % (Auto) 2.2 1.8 % Neut % (Auto) 69.8 78.6 % Lymph % (Auto) 19.5 12.7 % Emery % (Auto) 7.5 6.4 % Eos % (Auto) 0.8 0.4 % Baso % (Auto) 0.2 0.1 % Immature Gran # (Auto) 0.13 H 0.13 H (0.00-0.02) K/uL Neut # (Auto) 4.11 5.80 (1.4-6.5) K/uL Lymph # (Auto) 1.15 L 0.94 L (1.2-3.4) K/uL Emery # (Auto) 0.44 0.47 (0.11-0.59) K/uL Eos # (Auto) 0.05 0.03 (0-0.5) K/uL Baso # (Auto) 0.01 0.01 (0-0.2) K/uL RBC Morphology Unremarkable PE: General: Alert, orientedx3, NAD CVS: S1S2 RRR Lungs; CTAB Abd: soft, NT, ND, BS+, fundus firm, below Umbilicus Incision: Clean, dry, intact Perineum intact, Lochia rubra minimal Ext; NT, 2+/2+ edema on ankles and tibia, no erythema, Homans sign negative/ negative AP: 29 yo s/p C Section, pod# 3 VSS Afebrile doing well Continue routine postop care Encourage ambulation, PO intake Discussed when to call All questions were answered D/C home , f/u in office Results & Data Vital Signs (Past 12 Hours) Vital Signs Temp Pulse Pulse Resp BP Pulse Ox 09/12/19 08:15 36.8 C 85 16 137/80 09/12/19 00:00 36.8 C 67 16 129/79 100
== END 2019-09-12 15:05 | disposition home or self-care (01) | DRG 788 ==
LOC: 4S1 09-07 07:36 → 4S2 09-09 14:03